=== PATIENT | female | born 1960 | race Caucasian/White ===

== ENCOUNTER 2021-10-31 05:30 | Emergency (ER) | payer SELFPAY ==
[~2021-10-31] VITALS: Ht 157.5 cm; Wt 55.8 kg
--- NOTE | 2021-10-31 06:24 | NUR ---
PT BIBDAUGHTER C/O NEW ONSET HIGH BP 161/107 WITH NEAUSEA AND HEADACHE. PATIENT IS VISITING FROM [place] AND TOOK A "[employer]" RANCH HAND LIVESTOCK. PATIENT IS ALERT AND ORIENTED X3. AMBULATORY WITH NON LABORED BREATHING.
[2021-10-31] MEDS ORDERED: METOCLOPRAMIDE HCL 10 MG/2 ML VIAL IV ONE (06:30)
[2021-10-31] MEDS ORDERED: SUMATRIPTAN SUCCINATE 6 MG/0.5 ML VIAL SQ ONE ×2 (06:30→06:40)
[2021-10-31] MEDS ORDERED: METOCLOPRAMIDE HCL 10 MG/2 ML VIAL ONE (06:40)
[2021-10-31] MEDS ORDERED: LABETALOL 20 MG/4 ML VIAL IV ONE (07:00)
[2021-10-31 07:02] LABS: BASOPHILS % (AUTO) 0.6 % (0.0-2.0); EOSINOPHILS % (AUTO) 1.9 % (0.0-6.0); HEMATOCRIT 39 % (33-45); HEMOGLOBIN 13.2 g/dL (11.5-14.8); LYMPHOCYTES # (AUTO) 2.3 K/uL (0.8-4.8); LYMPHOCYTES % (AUTO) 37.4 % (20.0-44.0); MEAN CORPUSCULAR HGB CONC 34 g/dl (31.0-36.0); MEAN CORPUSCULAR VOLUME 92 fL (82-100); MONOCYTES # (AUTO) 0.6 K/uL (0.1-1.30); MONOCYTES % (AUTO) 8.9 % (2.0-12.0); NEUTROPHILS # (AUTO) 3.2 K/uL (1.8-8.9); NEUTROPHILS % (AUTO) 51.2 % (43.0-81.0); PLATELET COUNT (AUTO) 370 K/uL (150-450); RED BLOOD CELL COUNT(AUTO) 4.28 MIL/uL (4.0-5.2); WHITE BLOOD COUNT (AUTO) 6.2 K/uL (4.3-11.0)
[2021-10-31] MEDS ORDERED: LABETALOL HCL IV 100MG VIAL ONE (07:07)
[2021-10-31 07:18] LABS: CALCIUM, SERUM 8.8 mg/dL (8.5-10.1); CARBON DIOXIDE 31 mmol/L (21-32); CHLORIDE 105 mmol/L (98-107); CREATININE 0.9 mg/dL (0.6-1.3); GLUCOSE 91 mg/dL (74-106); POTASSIUM 4.1 mmol/L (3.5-5.1); SODIUM SERUM 140 mmol/L (136-145); UREA NITROGEN, BLOOD 20 mg/dL (7-18)
[2021-10-31] MEDS ORDERED: MECLIZINE HCL 12.5 MG TABLET PO ONE (07:30)
[2021-10-31] MEDS ORDERED: SUMA100T16 PO (08:06)
[2021-10-31] MEDS ORDERED: METO-295 PO (08:06)
[2021-10-31] MEDS ORDERED: IBUP-1957 PO (08:06)
[2021-10-31] MEDS ORDERED: AMLO-212 PO (08:06)
--- NOTE | 2021-10-31 08:25 | NUR ---
IV removed. Catheter intact and site benign. Pressure and 4x4 applied to site. No bleeding noted.Patient discharged to home in stable condition. Written and verbal after care instructions given. Patient verbalizes understanding of instruction.
[2021-10-31 08:26] VITALS: BP 132/76
== END 2021-10-31 08:26 | disposition home or self-care (01) ==
LOC: ER 05:36
DX: I10 Essential (primary) hypertension (principal); G43.909 Migraine, unspecified, not intractable, without status migrainosus; Z60.2 Problems related to living alone; Z79.899 Other long term (current) drug therapy
CPT/HCPCS: 36415; 70450; 80048; 84484; 85025; 93005; 96372; 96374; 96375; 99285; J2765; J3030; J3490